=== PATIENT | female | born 1950 | race Caucasian/White ===

== ENCOUNTER 2018-12-31 20:19 | Emergency (ER) | payer OTHER ==
[~2018-12-31] VITALS: Ht 152.4 cm; Wt 62.1 kg
[~2018-12-31 20:19] MED LIST: ALBU18HF INHALATION; ASPI-817 PO; ATOR-2 PO; CLOP75TA27 PO; FER325 PO; GABA-526 PO; HYDR-3498 PO; INSU100V23 SC; LANT3I SC; LEVO50TA7 PO; LISI10TA2 PO; METF850T13 PO; METO-448 PO; MONT10TA21 PO; OSEL75CA23 PO; PANT40TA4 PO
[2018-12-31 20:30] VITALS: Ht 152.4 cm; Wt 62.1 kg
[2018-12-31] MEDS ORDERED: SOD CHLORIDE 0.9% 620 ML IV ONE (21:00)
[2018-12-31] MEDS ORDERED: NPH SQ (21:47)
--- NOTE | 2018-12-31 21:52 | ERD ---
ER Documentation Chief Complaint Chief Complaint high blood sugar at home 385 around 4 pm, run out insulin HPI Patient is a 68-year-old female with diabetes who presents with high blood sugar. She ran out of her Novolin today. She feels dizzy but otherwise has no other complaints. Upon review of old medical records this is the patient's seventh visit to the ER since 2012. She does have a primary doctor. ROS All systems reviewed and are negative except as per history of present illness. Medications Home Meds Active Scripts Insulin Human Nph (Novolin-N) 100 Units/Ml Susp, 0 SQ TID, #1 Prov:LETTY BUSTILLO MD 12/31/18 Ferrous Sulfate* (Ferrous Sulfate*) 325 Mg Tabec, 325 MG PO BID for 30 Days, TAB Prov:JANET DONALDSON NP 08/11/16 Oseltamivir Phosphate* (Tamiflu*) 75 Mg Capsule, 75 MG PO BID, #4 CAP Prov:JANET DONALDSON NP 08/11/16 Lisinopril* (Lisinopril*) 10 Mg Tablet, 10 MG PO DAILY for 30 Days, #30 TAB 0 Refills Prov:HENRRY CALIX MD 02/10/16 Hydrocodone Bit-Acetaminophen* ([place]*) 5-325 Mg Tab, 1 TAB PO Q6 PRN for PAIN, #20 TAB 0 Refills Prov:MARK LOYLOA MD 07/05/15 Reported Medications Albuterol Sulfate* (Ventolin HFA*) 18 Gm Hfa.aer.ad, 2 PUFF INHALATION Q4H, #1 INHALER 02/03/17 Pantoprazole* (Pantoprazole*) 40 Mg Tablet.dr, 40 MG PO DAILY, TAB 08/08/16 Metformin Hcl* (Metformin Hcl*) 850 Mg Tablet, 850 MG PO BID, #30 TAB 08/08/16 Clopidogrel Bisulfate (Clopidogrel) 75 Mg Tablet, 75 MG PO DAILY, #30 TAB 08/08/16 Montelukast Sodium* (Singulair*) 10 Mg Tablet, 10 MG PO QHS, #30 TAB 08/08/16 Atorvastatin* (Atorvastatin*) 80 Mg Tablet, 80 MG PO QHS, #30 TAB 08/08/16 Gabapentin* (Gabapentin*) 600 Mg Tablet, 600 MG PO TID, TAB 07/03/15 Aspirin* (Aspirin* EC) 81 Mg Tablet.dr, 81 MG PO DAILY, TAB 07/03/15 Levothyroxine Sodium* (Levothyroxine Sodium*) 50 Mcg Tablet, 50 MCG PO AC BREAKFAST, TAB 07/03/15 Insulin Regular, Human* (Novolin R*) 100 U/Ml Vial, 0 SC SLIDING SCALE AC, VIAL 07/03/15 Insulin Glargine* (Lantus*) 100 Unit/Ml Soln, 50 UNIT SC Q12, EA 07/03/15 Metoprolol Tartrate* (Lopressor*) 25 Mg Tab, 25 MG PO BID, TAB 07/03/15 Allergies Allergies: Coded Allergies: No Known Allergy (Unverified , 02/03/17) PMhx/Soc History of Surgery: Yes (CABG in 2013. ) Anesthesia Reaction: No Hx Neurological Disorder: Yes (neuropaty, ) Hx Respiratory Disorders: No Hx Cardiac Disorders: Yes (open heart sx) Hx Psychiatric Problems: No Hx Miscellaneous Medical Probl: Yes (hypothyroidism, HLD, CAD, s/p CABG in 2013, DM, HTN. ) Hx Alcohol Use: No Hx Substance Use: No Hx Tobacco Use: Yes Smoking Status: Former smoker FmHx Family History: diabetes Physical Exam Vitals Vital Signs Date Temp Pulse Resp B/P (MAP) Pulse Ox O2 O2 Flow FiO2 Time Delivery Rate 12/31/18 97.5 62 18 170/88 99 20:30 (115) Physical Exam Const: No acute distress Head: Atraumatic Eyes: Normal Conjunctiva ENT: Normal External Ears, Nose and Mouth. Neck: Full range of motion. No meningismus. Resp: Clear to auscultation bilaterally Cardio: Regular rate and rhythm, no murmurs Abd: Soft, non tender, non distended. Normal bowel sounds Skin: No petechiae or rashes Back: No midline or flank tenderness Ext: No cyanosis, or edema Neur: Awake and alert Psych: Normal Mood and Affect Result Diagram: 12/31/18209912/31/18 2100 Results 24 hrs Laboratory Tests Test 12/31/18 20:41 12/31/18 21:00 12/31/18 21:08 Blood Gas Specimen Source Blood venous Arterial Blood Date Drawn 12/31/2018 9:02:09 PM Arterial Blood Gas VENOUS LINE Puncture Site Paco Test N/A Venous Blood pH 7.380 Venous Blood pCO2 41.6 mmHG (Temp Corrected) Venous Blood pO2 38.1 mmHG (Temp Corrected) Venous Blood HCO3 24.1 mmol/L Venous Blood Oxygen 70.2 mmHG Saturation Venous Blood Base Excess -1.0 mmol/L Venous Blood Total 12.6 g/dl Hemoglobin Venous Blood Oxyhemoglobin 67.7 % Venous Blood Methemoglobin 0 % Carboxyhemoglobin 3.5 % Blood Gas Temperature 37.0 C Blood Gas Actual 18 Respiration Rate Blood Gas Modality ROOM AIR FiO2 21.0 % Blood Gas Notified Whom Blood Gas Notified Time 12/31/2018 9:09:46 PM White Blood Count 8.5 10^3/ul Red Blood Count 4.03 10^6/ul Hemoglobin 11.5 g/dl Hematocrit 35.5 % Mean Corpuscular Volume 88.1 fl Mean Corpuscular Hemoglobin 28.5 pg Mean Corpuscular 32.4 g/dl Hemoglobin Concent Red Cell Distribution Width 13.8 % Platelet Count 264 10^3/UL Mean Platelet Volume 11.1 fl Immature Granulocytes % 0.600 % Neutrophils % 74.0 % Lymphocytes % 15.0 % Monocytes % 6.7 % Eosinophils % 3.1 % Basophils % 0.6 % Nucleated Red Blood Cells % 0.0 /100WBC Immature Granulocytes # 0.050 10^3/ul Neutrophils # 6.3 10^3/ul Lymphocytes # 1.3 10^3/ul Monocytes # 0.6 10^3/ul Eosinophils # 0.3 10^3/ul Basophils # 0.1 10^3/ul Nucleated Red Blood Cells # 0.0 10^3/ul Urine Color STRAW Urine Clarity CLEAR Urine pH 6.0 Urine Specific [place] 1.008 Urine Ketones NEGATIVE mg/dL Urine Nitrite NEGATIVE mg/dL Urine Bilirubin NEGATIVE mg/dL Urine Urobilinogen NEGATIVE mg/dL Urine Leukocyte Esterase 1+ Philip/ul Urine Microscopic RBC 1 /HPF Urine Microscopic WBC 3 /HPF Urine Hemoglobin NEGATIVE mg/dL Urine Glucose 3+ mg/dL Urine Total Protein NEGATIVE mg/dl Sodium Level 137 mmol/L Potassium Level 4.1 mmol/L Chloride Level 99 mmol/L Carbon Dioxide Level 26 mmol/L Anion Gap 12 Blood Urea Nitrogen 15 mg/dl Creatinine 0.81 mg/dl Est Glomerular Filtrat > 60 mL/min Rate mL/min Glucose Level 322 mg/dl Calcium Level 9.5 mg/dl Phosphorus Level 4.2 mg/dl Magnesium Level 1.6 mg/dl Bedside Glucose 340 mg/dL Current Medications Medications Dose Sig/Miguel Start Time Status Last (Trade) Ordered Route PRN Stop Time Admin Dose Reason Admin Sodium 620 ml @ ONCE ONCE 12/31/18 12/31/18 Chloride 620 mls/hr IV 21:00 12/31/18 21:10 21:59 Insulin 10 unit ONCE ONCE 12/31/18 Human SC 22:00 12/31/18 Lispro 22:01 (Humalog) Diagnostic 1 ea 2 HRS AFTER 12/31/18 Test (Pha) HUMALOG ONCE 22:00 12/31/18 (Accu-Chek) XX 22:01 Procedures/MDM Patient is a 68-year-old female with diabetes who presents with hyperglycemia. There is no sign of diabetic ketoacidosis. The patient was given normal saline bolus and 10 units of subcutaneous insulin. The patient will be given a prescription for her Novolin but needs to follow-up with her primary doctor. She can return for any worsening symptoms. Departure Diagnosis: Primary Impression: Hyperglycemia Condition: Fair Patient Instructions: Hyperglycemia (High Blood Sugar) Referrals: Your doctor Additional Instructions: Llame al doctor nombrado abajo (Referral Sources) MAANA y [employer] KEN PARA DENTRO DE RIO SEMANA. Dgale a la secretaria que nosotros le instruimos hacer esta ken.Avise o llame si riley condicin se empeora antes de la ken. LETTY BUSTILLO MD December 31, 2018 21:52
[2018-12-31] MEDS ORDERED: ACCU-CHEK XX ONE (22:00)
[2018-12-31] MEDS ORDERED: INSULIN LISPRO 100 UNIT/ML VIAL SC ONE (22:00)
[2018-12-31 23:15] VITALS: BP 153/68; PULSE 68; RESP 20
== END 2018-12-31 23:17 | disposition home or self-care (01) ==
LOC: E/R 20:19
DX: E11.65 Type 2 diabetes mellitus with hyperglycemia (principal); I10 Essential (primary) hypertension; I25.10 Atherosclerotic heart disease of native coronary artery without angina pectoris; E03.9 Hypothyroidism, unspecified; Z79.01 Long term (current) use of anticoagulants; Z79.4 Long term (current) use of insulin; Z87.891 Personal history of nicotine dependence; Z95.1 Presence of aortocoronary bypass graft
CPT/HCPCS: 36415; 80048; 81001; 82803; 82962; 83735; 84100; 85025; 96360; 96372; 99284; J1815; J7030